=== PATIENT | female | born 1955 | race African-American/Black ===

== ENCOUNTER 2017-08-22 17:54 | Emergency (ER) | payer SELFPAY ==
[~2017-08-22] VITALS: Ht 157.5 cm; Wt 72.6 kg
[2017-08-22 18:20] VITALS: BP 153/87
[2017-08-22] MEDS ORDERED: METH4TAB2 PO (18:49)
[2017-08-22] MEDS ORDERED: DICL50TA4 PO (18:49)
[2017-08-22] MEDS ORDERED: CYCL10TA2 PO (18:49)
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
== END 2017-08-22 19:25 | disposition home or self-care (01) ==
LOC: ER 17:54
DX: S13.4XXA Sprain of ligaments of cervical spine, initial encounter (principal); M25.511 Pain in right shoulder; I10 Essential (primary) hypertension; F17.200 Nicotine dependence, unspecified, uncomplicated; V43.52XA Car driver injured in collision with other type car in traffic accident, initial encounter; Y93.I9 Activity, other involving external motion; Y92.410 Unspecified street and highway as the place of occurrence of the external cause; Y99.8 Other external cause status
CPT/HCPCS: 99283